=== PATIENT | female | born 1990 | race Caucasian/White ===

== ENCOUNTER 2019-07-31 13:47 | Emergency (ER) | payer MEDICAID ==
[~2019-07-31] VITALS: Ht 162.6 cm; Wt 57.0 kg
[2019-07-31] MEDS ORDERED: OLANZAPINE 10 MG/VIAL IM ONE (16:45)
[2019-07-31 17:31] LABS: BASOPHILS % 1.6 % (0.0-2.0); EOSINOPHILS % 2.3 % (0.0-5.0); HEMATOCRIT. 39.5 % (36.0-48.0); HEMOGLOBIN. 13.8 g/dL (12.0-16.0); MEAN CORPUSCULAR HEMOGLOBIN 32.5 pg (28.0-32.0); MEAN CORPUSCULAR VOLUME 93.4 fL (81.0-99.0); MEAN PLATELET VOLUME 8.4 fl (7.4-10.4); MONOCYTES % 8.6 % (2.0-8.0); NEUTROPHILS % 54.5 % (40.0-76.0); PLATELET 238 x1000/uL (130-400); RED BLOOD CELL COUNT 4.23 mill/uL (4.2-5.4); RED CELL DISTRIBUTION WIDTH 14.1 % (11.6-14.6)
[2019-07-31 17:53] LABS: CHLORIDE 111 mEq/L (98-107)
[2019-07-31 17:56] LABS: ETHANOL BLOOD < 10 mg/dL
[2019-07-31 19:12] LABS: HCG SCREEN NEGATIVE
[2019-07-31 19:22] LABS: *AMPHETAMINES SCREEN URINE PRESUMTIVE POSITIVE (NEGATIVE); *BARBITURATES SCREEN URINE NEGATIVE (NEGATIVE); *BENZODIAZEPINES SCREEN URINE NEGATIVE (NEGATIVE); *COCAINE SCREEN URINE NEGATIVE (NEGATIVE); METHADONE URINE SCREEN NEGATIVE (NEGATIVE); OPIATES URINE SCREEN NEGATIVE (NEGATIVE); PHENCYCLIDINE URINE SCREEN NEGATIVE (NEGATIVE)
[2019-07-31 19:36] LABS: CANNABINOID URINE SCREEN PRESUMTIVE POSITIVE (NEGATIVE)
[2019-08-01] MEDS ORDERED: LIDOCAINE HCL 1% 20ML VIAL (Pyxis) INJ ONE (20:57)
[2019-08-04 14:30] VITALS: BP 98/56
== END 2019-08-04 15:02 | disposition home or self-care (01) ==
LOC: ER 13:47
DX: F30.9 Manic episode, unspecified (principal); F23 Brief psychotic disorder
CPT/HCPCS: 36415; 80048; 80305; 80307; 80320; 80329; 84703; 85025; 96372; 99284; J3490; Z7610; G0480

== ENCOUNTER 2020-07-10 07:31 | Emergency (ER) | payer MEDICAID ==
[~2020-07-10] VITALS: Ht 157.5 cm; Wt 58.9 kg
[2020-07-10 07:33] VITALS: BP 118/48
[2020-07-10] MEDS ORDERED: ACETAMINOPHEN 325MG TABLET PO ONE (09:30)
== END 2020-07-10 10:01 | disposition home or self-care (01) ==
LOC: ER 07:31
DX: J02.9 Acute pharyngitis, unspecified (principal); Z59.0 Homelessness
CPT/HCPCS: 99282

== ENCOUNTER 2020-07-12 12:31 | Emergency (ER) | payer MEDICAID ==
[~2020-07-12] VITALS: Ht 165.1 cm; Wt 59.0 kg
[2020-07-12] MEDS ORDERED: HALOPERIDOL LACTATE 5MG/ML VIAL IM STA (13:50)
[2020-07-12] MEDS ORDERED: DIPHENHYDRAMINE 50MG/ML VIAL IM STA (13:50)
[2020-07-12 14:36] LABS: BASOPHILS % 1.1 % (0.0-2.0); EOSINOPHILS % 2.7 % (0.0-5.0); HEMATOCRIT. 43.2 % (36.0-48.0); HEMOGLOBIN. 14.8 g/dL (12.0-16.0); LYMPHOCYTES % 34.5 % (20.0-50.0); MEAN CORPUSCULAR HEMOGLOBIN 32.1 pg (28.0-32.0); MEAN CORPUSCULAR VOLUME 93.4 fL (81.0-99.0); MEAN PLATELET VOLUME 8.3 fl (7.4-10.4); MONOCYTES % 10.3 % (2.0-8.0); NEUTROPHILS % 51.4 % (40.0-76.0); PLATELET 275 x1000/uL (130-400); RED BLOOD CELL COUNT 4.62 mill/uL (4.2-5.4); RED CELL DISTRIBUTION WIDTH 13.5 % (11.6-14.6)
[2020-07-12 14:41] LABS: CHLORIDE 104 mEq/L (98-107)
[2020-07-12 14:46] LABS: ETHANOL BLOOD < 10 mg/dL
[2020-07-12 15:25] LABS: CLARITY URINE CLEAR (CLEAR); COLOR URINE YELLOW (YELLOW); KETONES URINE 2+ (NEGATIVE); LEUKOCYTE ESTERASE URINE TRACE (NEGATIVE); NITRITE URINE NEGATIVE (NEGATIVE); OCCULT BLOOD URINE TRACE (NEGATIVE); PROTEIN URINE NEGATIVE (NEGATIVE); SPECIFIC GRAVITY URINE 1.021 (1.005-1.030)
[2020-07-12 15:37] LABS: *BARBITURATES SCREEN URINE NEGATIVE (NEGATIVE); *BENZODIAZEPINES SCREEN URINE NEGATIVE (NEGATIVE); *COCAINE SCREEN URINE NEGATIVE (NEGATIVE); METHADONE URINE SCREEN NEGATIVE (NEGATIVE); OPIATES URINE SCREEN NEGATIVE (NEGATIVE)
[2020-07-12 15:38] LABS: PHENCYCLIDINE URINE SCREEN NEGATIVE (NEGATIVE)
[2020-07-12 15:42] LABS: *AMPHETAMINES SCREEN URINE PRESUMTIVE POSITIVE (NEGATIVE); CANNABINOID URINE SCREEN PRESUMTIVE POSITIVE (NEGATIVE)
[2020-07-13 10:30] VITALS: BP 102/62
== END 2020-07-13 11:15 | disposition home or self-care (01) ==
LOC: ER 12:37
DX: F23 Brief psychotic disorder (principal); F15.10 Other stimulant abuse, uncomplicated; F12.10 Cannabis abuse, uncomplicated
CPT/HCPCS: 36415; 80053; 80305; 80307; 80320; 80329; 81003; 81025; 85025; 93005; 96372; 99285; J1200; J1630; G0480